=== PATIENT | male | born 1965 | race Caucasian/White ===

== ENCOUNTER 2017-04-19 16:02 | Inpatient (IN) | payer MEDICARE, OTHER ==
[~2017-04-19] VITALS: Ht 177.8 cm; Wt 86.4 kg
[2017-04-19] MEDS ORDERED: SODIUM CHLORIDE 0.9% 1,000 ML IV ONE (16:09)
[2017-04-19] MEDS ORDERED: ONDANSETRON 2MG/ML, 2ML IVPush ONE (16:30)
[2017-04-19] MEDS ORDERED: SODIUM CHLORIDE 0.9% 1,000ML IVBOLUS ONE (16:30)
[2017-04-19] MEDS ORDERED: ONDANSETRON 2MG/ML, 2ML ONE (16:30)
[2017-04-19] MEDS ORDERED: HYDROmorphone 1 MG/ML, 1ML ONE ×2 (16:30→19:18)
[2017-04-19] MEDS: HYDROmorphone 1 MG/ML, 1ML IVPush PRN ×2 (16:50→19:20)
[2017-04-19 17:04] LABS: ASPARTATE AMINO TRANSFERASE 54 U/L (15-37); BLOOD UREA NITROGEN 13 mg/dL (7-18)
[2017-04-19] MEDS ORDERED: HYDR-882 PO (17:05)
[2017-04-19] MEDS ORDERED: HYDROmorphone 1 MG/ML, 1ML IV ONE (17:30)
[2017-04-19 18:33] LABS: PATH.CAST-FLAG NOT PRESENT; SPERM-FLAG NOT PRESENT; SRC-FLAG NOT PRESENT; XTAL-FLAG NOT PRESENT; YLC-FLAG NOT PRESENT
[2017-04-19] MEDS ORDERED: LORA0.5T PO (19:48)
[2017-04-19] MEDS ORDERED: DOXE10CA PO (19:48)
[2017-04-19] MEDS ORDERED: OMNIPAQUE 350 MG/ML, 100ML BOTTLE ONE (19:51)
[2017-04-19] MEDS ORDERED: ENALAPRILAT 1.25 MG/ML, 2ML IVPush PRN (21:30)
[2017-04-19] MEDS ORDERED: ENOXAPARIN 40 MG/0.4 ML SQ SCH (21:30)
[2017-04-19] MEDS ORDERED: LORazepam 0.5MG TABLET PO PRN (21:30)
[2017-04-19] MEDS ORDERED: DOXEPIN 25 MG CAPSULE PO SCH (22:03)
[2017-04-19 22:18] VITALS: BP 151/74
[2017-04-19] MEDS: D5%-0.45% NACL 1,000 ML IV SCH (23:24)
[2017-04-20] MEDS ORDERED: DOXEPIN 25 MG CAPSULE PO SCH (09:00)
[2017-04-20] MEDS: D5%-0.45% NACL 1,000 ML IV SCH (09:58)
[2017-04-20] MEDS ORDERED: AMLODIPINE 5 MG TABLET PO SCH (13:00)
[2017-04-20] MEDS ORDERED: AMLO5TAB2 PO (14:01)
[2017-04-20 14:33] VITALS: BP 140/91
[2017-04-20 20:36] VITALS: BP 152/93
[2017-04-20] MEDS ORDERED: D5%-0.45% NACL 1,000 ML IV SCH (21:10)
== END 2017-04-20 20:25 | disposition home or self-care (01) | DRG 390 ==
LOC: ED 16:43 → EDIP 19:29 → 4NOR 21:32
PROVIDERS: ADMIT Internal Medicine; ATTEND Internal Medicine
DX: K56.5 Intestinal adhesions [bands] with obstruction (postinfection) (principal); I10 Essential (primary) hypertension; D72.829 Elevated white blood cell count, unspecified; F17.200 Nicotine dependence, unspecified, uncomplicated; F43.10 Post-traumatic stress disorder, unspecified; G54.6 Phantom limb syndrome with pain; G62.9 Polyneuropathy, unspecified; Z80.1 Family history of malignant neoplasm of trachea, bronchus and lung; Z86.14 Personal history of Methicillin resistant Staphylococcus aureus infection; Z89.519 Acquired absence of unspecified leg below knee; Z90.49 Acquired absence of other specified parts of digestive tract; Z88.6 Allergy status to analgesic agent; Z88.0 Allergy status to penicillin
CPT/HCPCS: 36415; 74177; 80053; 81001; 83605; 83690; 85025; 93005; 96361; 96374; 96375; 96376; J1170; J1650; J2405; Q9967; J7030

== ENCOUNTER 2017-04-23 06:23 | Inpatient (IN) | payer OTHER ==
[~2017-04-23] VITALS: Ht 177.8 cm; Wt 91.4 kg
[~2017-04-23 06:23] MED LIST: AMLO5TAB2 PO; DOXE10CA PO; HYDR-882 PO; LORA0.5T PO
[2017-04-23] MEDS ORDERED: ONDANSETRON 2MG/ML, 2ML ONE (07:14)
[2017-04-23] MEDS ORDERED: SODIUM CHLORIDE 0.9% 1,000 ML IV ONE (07:14)
[2017-04-23] MEDS ORDERED: HYDROmorphone 1 MG/ML, 1ML ONE ×2 (07:14→08:19)
[2017-04-23] MEDS: HYDROmorphone 1 MG/ML, 1ML IVPush PRN ×2 (07:21→08:24)
[2017-04-23] MEDS ORDERED: ONDANSETRON 2MG/ML, 2ML IVPush ONE (07:30)
[2017-04-23] MEDS ORDERED: SODIUM CHLORIDE 0.9% 1,000ML IVBOLUS ONE (07:30)
[2017-04-23 08:07] LABS: ASPARTATE AMINO TRANSFERASE 178 U/L (15-37); BLOOD UREA NITROGEN 15 mg/dL (7-18)
[2017-04-23] MEDS ORDERED: OMNIPAQUE 350 MG/ML, 100ML BOTTLE ONE (08:59)
[2017-04-23 10:15] LABS: PATH.CAST-FLAG NOT PRESENT; SPERM-FLAG NOT PRESENT; SRC-FLAG NOT PRESENT; XTAL-FLAG NOT PRESENT; YLC-FLAG NOT PRESENT
[2017-04-23] MEDS ORDERED: hydrALAzine 20 MG/ML, 1ML IVPush PRN (12:00)
[2017-04-23] MEDS ORDERED: DOCUSATE 100 MG CAPSULE PO PRN (12:00)
[2017-04-23] MEDS ORDERED: ONDANSETRON 2MG/ML, 2ML IVPush PRN (12:00)
[2017-04-23] MEDS: SODIUM CHLORIDE 0.9% 1,000 ML IV SCH ×3 (13:02→20:26)
[2017-04-23] MEDS: ENOXAPARIN 40 MG/0.4 ML SQ SCH (13:07)
[2017-04-23] MEDS: HYDROmorphone 1 MG/ML, 1ML IV PRN ×3 (13:07→20:26)
[2017-04-23] MEDS: NICOTINE 7 MG/24 HR PATCH.TD24 TD SCH (16:00)
[2017-04-23] MEDS ORDERED: DOXEPIN 25 MG CAPSULE PO ONE (20:00)
[2017-04-23 20:45] VITALS: BP 150/101
[2017-04-23] MEDS ORDERED: ACETAMINOPHEN 650 MG SUPP PR PRN (21:30)
[2017-04-23] MEDS ORDERED: ACETAMINOPHEN 650 MG SUPP ONE (21:30)
[2017-04-24] MEDS: HYDROmorphone 1 MG/ML, 1ML IV PRN ×3 (00:53→09:10)
[2017-04-24] MEDS: SODIUM CHLORIDE 0.9% 1,000 ML IV SCH ×5 (00:53→22:59)
[2017-04-24 00:56] VITALS: BP 130/65
[2017-04-24 03:22] VITALS: BP 134/81
[2017-04-24 05:16] LABS: ASPARTATE AMINO TRANSFERASE 129 U/L (15-37); BLOOD UREA NITROGEN 9 mg/dL (7-18)
[2017-04-24] MEDS: AMLODIPINE 5 MG TABLET PO SCH (09:00)
[2017-04-24] MEDS: PANTOPRAZOLE 40 MG IV IVPush SCH (09:10)
[2017-04-24 09:45] VITALS: BP 133/79
[2017-04-24] MEDS ORDERED: CEFTRIAXONE 1,000 MG in SODIUM CHLORIDE 0.9% 50 ML IV SCH (10:30)
[2017-04-24] MEDS ORDERED: ACETAMINOPHEN 325 MG TABLET PO PRN (11:00)
[2017-04-24 11:41] LABS: RAPID INFLUENZA A Negative (Negative); RAPID INFLUENZA B Negative (Negative)
[2017-04-24] MEDS: CEFTRIAXONE PMX 1GM/50ML 50 ML IV SCH (11:47)
[2017-04-24] MEDS: METRONIDAZOLE PMX 500MG/100ML 100 ML IV SCH ×2 (12:48→20:10)
[2017-04-24] MEDS: ENOXAPARIN 40 MG/0.4 ML SQ SCH (12:48)
[2017-04-24 13:53] VITALS: BP 127/75
[2017-04-24] MEDS: HYDROcodone/APAP 5/325 TABLET PO PRN ×2 (14:32→20:10)
[2017-04-24] MEDS: NICOTINE 7 MG/24 HR PATCH.TD24 TD SCH (15:26)
[2017-04-24 20:08] VITALS: BP 148/89
[2017-04-24] MEDS: DOXEPIN 25 MG CAPSULE PO SCH (20:11)
[2017-04-25] MEDS: HYDROcodone/APAP 5/325 TABLET PO PRN ×3 (02:49→21:14)
[2017-04-25 03:22] VITALS: BP 131/90
[2017-04-25] MEDS: METRONIDAZOLE PMX 500MG/100ML 100 ML IV SCH ×3 (04:30→21:14)
[2017-04-25 05:29] LABS: ASPARTATE AMINO TRANSFERASE 62 U/L (15-37); BLOOD UREA NITROGEN 9 mg/dL (7-18)
[2017-04-25] MEDS: SODIUM CHLORIDE 0.9% 1,000 ML IV SCH ×2 (05:44→11:00)
[2017-04-25 08:38] VITALS: BP 150/81
[2017-04-25] MEDS: PANTOPRAZOLE 40 MG IV IVPush SCH (08:59)
[2017-04-25] MEDS: AMLODIPINE 5 MG TABLET PO SCH (08:59)
[2017-04-25] MEDS: CEFTRIAXONE PMX 1GM/50ML 50 ML IV SCH (10:39)
[2017-04-25] MEDS: ENOXAPARIN 40 MG/0.4 ML SQ SCH (13:21)
[2017-04-25 13:45] VITALS: BP 123/78
[2017-04-25] MEDS: NICOTINE 7 MG/24 HR PATCH.TD24 TD SCH (15:47)
[2017-04-25 20:22] VITALS: BP 133/82
[2017-04-25] MEDS: DOXEPIN 25 MG CAPSULE PO SCH (21:14)
[2017-04-26 02:26] VITALS: BP 130/77
[2017-04-26] MEDS: METRONIDAZOLE PMX 500MG/100ML 100 ML IV SCH (04:26)
[2017-04-26] MEDS: PANTOPRAZOLE 40 MG IV IVPush SCH (08:19)
[2017-04-26] MEDS: AMLODIPINE 5 MG TABLET PO SCH (08:19)
[2017-04-26 08:35] VITALS: BP 136/84
[2017-04-26] MEDS: CEFTRIAXONE PMX 1GM/50ML 50 ML IV SCH (10:33)
[2017-04-26] MEDS ORDERED: SULF1TAB24 PO (12:42)
[2017-04-26] MEDS ORDERED: METR500T PO (12:42)
[2017-04-26 14:51] VITALS: BP 132/85
== END 2017-04-26 15:35 | disposition home or self-care (01) | DRG 871 ==
LOC: ED 07:50 → EDIP 09:15 → 3NW 10:59
PROVIDERS: ADMIT Internal Medicine; ATTEND Family Medicine
DX: A41.50 Gram-negative sepsis, unspecified (principal); K85.90 Acute pancreatitis without necrosis or infection, unspecified; B96.20 Unspecified Escherichia coli [E. coli] as the cause of diseases classified elsewhere; F17.210 Nicotine dependence, cigarettes, uncomplicated; F43.10 Post-traumatic stress disorder, unspecified; I10 Essential (primary) hypertension; Z80.1 Family history of malignant neoplasm of trachea, bronchus and lung; Z86.14 Personal history of Methicillin resistant Staphylococcus aureus infection; Z89.511 Acquired absence of right leg below knee; Z90.49 Acquired absence of other specified parts of digestive tract; Z88.5 Allergy status to narcotic agent; Z88.0 Allergy status to penicillin
CPT/HCPCS: 36415; 71010; 74022; 74177; 80053; 80061; 81001; 83690; 83735; 84100; 85025; 87040; 87077; 87186; 87400; 96361; 96374; 96375; 96376; J0696; J1170; J1650; J2405; Q9967; C9113; J7030

== ENCOUNTER 2017-11-05 07:07 | Emergency (ER) | payer OTHER ==
[~2017-11-05] VITALS: Ht 177.8 cm; Wt 105.0 kg
[~2017-11-05 07:07] MED LIST changes: +METR500T PO; +SULF1TAB24 PO
[2017-11-05] MEDS ORDERED: SODIUM CHLORIDE FLUSH 10ML SYR IVF ONE (07:30)
[2017-11-05 07:59] LABS: MICROSCOPIC INDICATED
[2017-11-05 08:08] LABS: BASOPHILS # (AUTO) 0.03 x10^3/uL (0-0.1); BASOPHILS % (AUTO) 0 % (0-1); EOSINOPHILS # (AUTO) 0.04 x10^3/uL (0-0.4); EOSINOPHILS % (AUTO) 0 % (1-7); LYMPHOCYTES # (AUTO) 0.87 x10^3/uL (1-3.4); LYMPHOCYTES % (AUTO) 9 % (22-44); MD NO; MEAN CORPUSCULAR HEMOGLOBIN 30.1 pg (27.5-34.5); MEAN CORPUSCULAR HGB CONC 34.5 g/dL (33.2-36.2); MEAN CORPUSCULAR VOLUME 87.1 fL (81-97); MEAN PLATELET VOLUME 7.8 fL (7.4-10.4); MONOCYTES # (AUTO) 0.62 x10^3/uL (0.2-0.8); MONOCYTES % (AUTO) 7 % (2-9); NEUTROPHILS # (AUTO) 8.01 x10^3/uL (1.8-6.8); NEUTROPHILS % (AUTO) 84 % (42-75); PLATELET COUNT 180 x10^3/uL (130-400); RED BLOOD COUNT 5.55 x10^6/uL (4.38-5.82); RED CELL DISTRIBUTION WIDTH 13.2 % (9.4-14.8)
[2017-11-05 08:15] LABS: CULTURE INDICATED? NO
[2017-11-05 08:19] LABS: ALANINE AMINOTRANSFERASE 113 U/L (12-78); ALBUMIN 3.8 g/dL (3.4-5.0); ANION GAP 7 mmol/L (5-15); CHLORIDE 109 mmol/L (98-107); CREATININE 0.96 mg/dL (0.7-1.3)
[2017-11-05 08:21] LABS: ALKALINE PHOSPHATASE 139 U/L (45-117); BILIRUBIN,TOTAL 0.6 mg/dL (0.2-1.0); TOTAL PROTEIN 7.5 g/dL (6.4-8.2)
[2017-11-05 09:34] VITALS: BP 142/81
== END 2017-11-05 09:36 | disposition home or self-care (01) ==
LOC: ED 07:47
DX: R10.13 Epigastric pain (principal); R10.33 Periumbilical pain; Z88.0 Allergy status to penicillin; Z88.5 Allergy status to narcotic agent; Z88.6 Allergy status to analgesic agent; Z90.49 Acquired absence of other specified parts of digestive tract; F43.10 Post-traumatic stress disorder, unspecified; Z98.890 Other specified postprocedural states
CPT/HCPCS: 36415; 74022; 80053; 81001; 83690; 85025; 93005; 99285